=== PATIENT | female | born 1945 ===

== ENCOUNTER 2018-01-10 11:08 | Emergency (ER) | payer MEDICARE ==
[2018-01-10 11:08] VITALS: BMI 25.0
[2018-01-10] MEDS ORDERED: Sodium Chloride 0.9% 500 ML IV STA (11:41)
--- NOTE | 2018-01-10 11:50 | ED PDOC ---
Arrival/HPI - General Historian: Patient, Family - History of Present Illness Time/Duration: Other (2 days) Symptom Onset: Gradual Symptom Course: Worsening Quality: Stabbing Severity Level: 5 - General Chief Complaint: Abdominal Pain Time Seen by Provider: 01/10/18 11:17 - History of Present Illness Narrative History of Present Illness (Text): 01/10/18 11:45 72-year-old female with a history of diabetes presents today with a 2 day history of right-sided abdominal pain. Patient denies nausea vomiting diarrhea or constipation. Denies any urinary symptoms. Patient complaining of pain greatest in the right lower quadrant of the abdomen. Patient states she is a diabetic but has not been checking her sugars. Patient states she takes glyburide daily. Patient denies chest pain or shortness of breath. Denies dizziness or weakness. Patient denies radiation of pain to the back. No other complaints. no medications have been taken for pain. (Nicole Walker) Past Medical History - Provider Review Nursing Documentation Reviewed: Yes - Travel History Have you recently traveled outside [place] w/in the past 3 mons?: No - Infectious Disease Hx of Infectious Diseases: None - Reproductive Menopause: Yes - Cardiac Hx Hypertension: Yes - Endocrine/Metabolic Hx Endocrine Disorders: Yes Hx Diabetes Mellitus Type 2: Yes - Psychiatric Hx Substance Use: No - Surgical History Hx Tubal Ligation: Yes - Anesthesia Hx Anesthesia: Yes Hx Anesthesia Reactions: No Hx Malignant Hyperthermia: No Family/Social History - Physician Review Nursing Documentation Reviewed: Yes Family/Social History: Unknown Family HX Smoking Status: Never Smoked Hx Alcohol Use: No Hx Substance Use: No Allergies/Home Meds Allergies/Adverse Reactions: Allergies No Known Allergies Allergy (Verified 01/10/18 11:22) Home Medications: Home Meds Medication Instructions Recorded Confirmed Aspirin [Dolliver Aspirin] 81 mg PO DAILY 11/10/16 01/10/18 Atorvastatin [Lipitor] 10 mg PO DIN 11/10/16 01/10/18 Diltiazem HCl [Diltiazem 24Hr ER] 180 mg PO DAILY 11/10/16 01/10/18 Enalapril Maleate [Vasotec] 20 mg PO DAILY 11/10/16 01/10/18 glyBURIDE [Micronase] 2.5 mg PO DAILY 11/10/16 01/10/18 Levothyroxine [Synthroid] 25 mcg PO DAILY 05/02/17 01/10/18 Review of Systems - Review of Systems Constitutional: absent: Fatigue, Fevers Respiratory: absent: SOB, Cough Cardiovascular: absent: Chest Pain, Palpitations Gastrointestinal: Abdominal Pain. absent: Constipation, Diarrhea, Nausea, Vomiting Genitourinary Female: absent: Dysuria, Frequency, Hematuria, Vaginal Discharge Musculoskeletal: absent: Arthralgias, Back Pain, Neck Pain Skin: absent: Rash, Pruritis Neurological: absent: Headache, Dizziness Psychiatric: absent: Anxiety, Depression, Suicidal Ideation Physical Exam Vital Signs Reviewed: Yes Temperature: Afebrile Blood Pressure: Normal Pulse: Regular Respiratory Rate: Normal Appearance: Positive for: Well-Appearing, Non-Toxic, Comfortable Pain Distress: None Mental Status: Positive for: Alert and Oriented X 3 - Systems Exam Head: Present: Atraumatic Mouth: Present: Moist Mucous Membranes Neck: Present: Normal Range of Motion Respiratory/Chest: Present: Clear to Auscultation, Good Air Exchange. No: Respiratory Distress, Accessory Muscle Use Cardiovascular: Present: Regular Rate and Rhythm, Normal S1, S2. No: Murmurs Abdomen: Present: Tenderness (RUQ/ RLQ tenderness), Normal Bowel Sounds. No: Distention, Peritoneal Signs, Rebound, Guarding Back: Present: Normal Inspection. No: CVA Tenderness, Midline Tenderness, Paraspinal Tenderness Upper Extremity: Present: Normal Inspection Lower Extremity: Present: Normal Inspection, Normal ROM Neurological: Present: GCS=15, Speech Normal Skin: Present: Warm, Dry, Normal Color. No: Rashes Psychiatric: Present: Alert, Oriented x 3 Vital Signs Temp Pulse Resp BP Pulse Ox 01/10/18 14:11 98.3 F 62 16 145/71 99 01/10/18 11:17 99 F 84 18 137/76 97 Medical Decision Making Reassessment Condition: Re-examined, Improved ED Course and Treatment: 01/10/18 11:53 Patient is nontoxic well appearing with stable vital signs presenting with [ severe] abdominal pain CBC wnl CMP bun; 22 cr; 1.1 Amylase wnl Lipase wnl Urinalysis: + leukocytes, + wbcs, + blood. CAT scan: FINDINGS: LOWER THORAX: Unremarkable. LIVER: Unremarkable. No gross lesion or ductal dilatation. GALLBLADDER AND BILE DUCTS: Unremarkable. PANCREAS: Unremarkable. No gross lesion or ductal dilatation. SPLEEN: Unremarkable. ADRENALS: Unremarkable. No mass. KIDNEYS AND URETERS: Unremarkable. No hydronephrosis. No solid mass. VASCULATURE: Unremarkable. No aortic aneurysm. BOWEL: Unremarkable. No obstruction. No gross mural thickening. APPENDIX: Normal appendix. PERITONEUM: Unremarkable. No free fluid. No free air. LYMPH NODES: Unremarkable. No enlarged lymph nodes. BLADDER: Unremarkable. REPRODUCTIVE: Unremarkable. BONES: No acute fracture. OTHER FINDINGS: None. IMPRESSION: No acute findings Patient reassessment: pt non toxic well appearing; no distress. stable vitals. pt with UTI on UA with negative ct. refusing medications in er for pain; will d /c home with keflex for UTI. advised f/u with PMD tomorrow. advised immediate return if symptoms worsen,persist or if new symptoms develop. keflex given PO Discussed all results with patient in depth pt and family verbalized understanding of d/c instructions and need for immediate f/u with pmd or immediate return if symptoms worsen,persist or if new symptoms develop. pt seen and evaluated by dr. perdue. Impression: Abdominal pain, UTI Motrin every 6 hours as needed for pain Keflex 1 capsule twice daily x 10 days Increase fluids Followup with primary care physician within the next 2 days Follow up with the urologist for the next 2 days Return if symptoms worsen persist or if new symptoms develop; high fevers, increasing pain, nausea/vomiting or if any other concerning symptoms develop. (Nicole Walker) Patient seen with family member at bedside. She admanatly denies any chest pain or back pain. No shortness of breath. No diaphoresis. Symptoms not exertional. Pain is palpable, mild. No peritoneal signs noted. CT reading reviewed with patient and family. Limitations of CT reviewed, although as patient is comfortable, with no chest pain or sob or exertional symptoms, will d/c with follow-up. (Janell Perdue) - Lab Interpretations Lab Results: 01/10/18 12:03 01/10/18 12:03 Lab Results 01/10/18 12:03: WBC 7.4 D, RBC 4.41, Hgb 13.4, Hct 40.9, MCV 92.7, MCH 30.4, MCHC 32.8, RDW 13.7, Plt Count 213, MPV 10.2, Gran % 76.5 H, Lymph % (Auto) 16.0 L, Carbon % (Auto) 5.4, Eos % (Auto) 1.8, Baso % (Auto) 0.3, Gran # 5.64, Lymph # (Auto) 1.2, Carbon # (Auto) 0.4, Eos # (Auto) 0.1, Baso # (Auto) 0.02 01/10/18 12:03: Sodium 142, Potassium 4.2, Chloride 105, Carbon Dioxide 26, Anion Gap 14, BUN 22 H, Creatinine 1.1, Est GFR ( Amer) 59, Est GFR (Non- Af Amer) 49, Random Glucose 167 H, Calcium 9.7, Total Bilirubin 0.4, AST 27, ALT 27, Alkaline Phosphatase 52, Total Protein 7.4, Albumin 4.0, Globulin 3.4, Albumin/Globulin Ratio 1.2, Amylase 78, Lipase 130 01/10/18 11:14: Urine Color Yellow, Urine Appearance Sl cloudy, Urine pH 6.0, Ur Specific [place] 1.020, Urine Protein Trace H, Urine Glucose (UA) Negative, Urine Ketones Trace H, Urine Blood Small H, Urine Nitrate Negative, Urine Bilirubin Negative, Urine Urobilinogen 0.2, Ur Leukocyte Esterase Moderate H, Urine RBC 1 - 3, Urine WBC 10 - 15, Ur Epithelial Cells 4 - 5, Urine Bacteria Few - RAD Interpretation Radiology Orders: 01/10/18 11:41 ABD & PELVIS IV CONTRAST ONLY [CT] Stat - Medication Orders Current Medication Orders: Discontinued Medications Cephalexin Monohydrate (Keflex) 500 mg PO STAT STA PRN Reason: Protocol Stop: 01/10/18 13:52 Last Admin: 01/10/18 14:03 Dose: 500 mg Sodium Chloride (Sodium Chloride 0.9%) 500 mls @ 999 mls/hr IV .Q31M STA Stop: 01/10/18 12:11 Last Admin: 01/10/18 11:58 Dose: 999 mls/hr eMAR Start Stop Document 01/10/18 11:58 HP (Rec: 01/10/18 11:58 HP [id number]) Intravenous Solution Start Date 01/10/18 Start Time 11:58 Disposition/Present on Arrival - Present on Arrival Any Indicators Present on Arrival: No History of DVT/PE: No History of Uncontrolled Diabetes: No Urinary Catheter: No History of Decub. Ulcer: No History Surgical Site Infection Following: None - Disposition Have Diagnosis and Disposition been Completed?: Yes Disposition Time: 13:48 Patient Plan: Discharge - Disposition Diagnosis: Urinary tract infection, Abdominal pain Disposition: HOME/ ROUTINE Condition: GOOD Discharge Instructions (ExitCare): Urinary Tract Infections in Adults, Acute Abdomen (Belly Pain), Adult (DC) Print Language: [place] Additional Instructions: Motrin every 6 hours as needed for pain Keflex 1 capsule twice daily x 10 days Increase fluids Followup with primary care physician within the next 2 days Follow up with the urologist for the next 2 days Return if symptoms worsen persist or if new symptoms develop; high fevers, increasing pain, nausea/vomiting or if any other concerning symptoms develop. Prescriptions: Cephalexin [Keflex] 500 mg PO BID #20 capsule Referrals: Nola Casas MD [Staff Provider] - [place] up [place] [facility] [place] - Follow up with primary Forms: [employer] (Maldivian)
[2018-01-10 12:00] LABS: URINE APPEARANCE SL CLOUDY (CLEAR); URINE BILIRUBIN NEGATIVE (NEGATIVE); URINE BLOOD SMALL (NEGATIVE); URINE COLOR YELLOW (YELLOW); URINE GLUCOSE (UA) NEGATIVE (NEGATIVE); URINE LEUKOCYTE ESTERASE MODERATE Leu/uL (NEGATIVE); URINE NITRATE NEGATIVE (NEGATIVE); URINE PROTEIN TRACE mg/dL (<30 mg/dL); URINE UROBILINOGEN 0.2 E.U./dL (<1 E.U./dL)
[2018-01-10 12:06] LABS: URINE BACTERIA FEW (NEG)
[2018-01-10 12:09] LABS: BASO # 0.02 K/mm3 (0.0-2.0); BASO % 0.3 % (0.0-3.0); EOS # 0.1 (0.0-0.7); EOS % 1.8 % (1.5-5.0); GRAN # 5.64 (1.4-6.5); GRAN % 76.5 % (50.0-68.0); HEMOGLOBIN 13.4 g/dL (12.0-16.0); LYMPH # 1.2 (1.2-3.4); MEAN CELL VOLUME 92.7 fl (80.0-105.0); MEAN CORPUSCULAR HEMOGLOBIN 30.4 pg (25.0-35.0); MEAN CORPUSCULAR HGB CONC 32.8 g/dl (31.0-37.0); MEAN PLATELET VOLUME 10.2 fl (7.0-11.0); MONO # 0.4 (0.1-0.6); MONO % 5.4 % (1.0-6.0); RBC 4.41 10^6/uL (3.5-6.1); RED CELL DISTRIBUTION WIDTH 13.7 % (11.5-14.5); WHITE BLOOD COUNT 7.4 10^3/ul (4.5-11.0)
[2018-01-10 12:19] LABS: ALB/GLOB RATIO 1.2 (1.1-1.8); CALCIUM 9.7 mg/dL (8.4-10.5)
[2018-01-10] MEDS ORDERED: Iohexol 350 MG/100 ML VIAL ONE (13:05)
--- NOTE | 2018-01-10 13:20 | CT ---
PROCEDURE: CT Abdomen and Pelvis with contrast HISTORY: rlq/ruq abd tenderness COMPARISON: None. TECHNIQUE: Contrast dose: 100 cc of Omni 350 Radiation dose: Total exam DLP = 356 mGy-cm. This CT exam was performed using one or more of the following dose reduction techniques: Automated exposure control, adjustment of the mA and/or kV according to patient size, and/or use of iterative reconstruction technique. FINDINGS: LOWER THORAX: Unremarkable. LIVER: Unremarkable. No gross lesion or ductal dilatation. GALLBLADDER AND BILE DUCTS: Unremarkable. PANCREAS: Unremarkable. No gross lesion or ductal dilatation. SPLEEN: Unremarkable. ADRENALS: Unremarkable. No mass. KIDNEYS AND URETERS: Unremarkable. No hydronephrosis. No solid mass. VASCULATURE: Unremarkable. No aortic aneurysm. BOWEL: Unremarkable. No obstruction. No gross mural thickening. APPENDIX: Normal appendix. PERITONEUM: Unremarkable. No free fluid. No free air. LYMPH NODES: Unremarkable. No enlarged lymph nodes. BLADDER: Unremarkable. REPRODUCTIVE: Unremarkable. BONES: No acute fracture. OTHER FINDINGS: None. IMPRESSION: No acute findings
[2018-01-10 14:11] VITALS: BP 145/71; PULSE 62; RESP 16; TEMP 98.3; O2SAT 99
== END 2018-01-10 14:04 | disposition home or self-care (01) ==
LOC: ED 11:08
DX: N39.0 Urinary tract infection, site not specified (principal); R10.9 Unspecified abdominal pain; E11.9 Type 2 diabetes mellitus without complications; I10 Essential (primary) hypertension
CPT/HCPCS: 74177; 80053; 81001; 82150; 83690; 85025; 87086; 99283; J7040; Q9967